=== PATIENT | female | born 1970 | race Caucasian/White ===

== ENCOUNTER → 2023-04-06 | Outpatient (CLI) | payer OTHER ==
--- NOTE | 2023-04-06 16:28 | XR ---
EXAMINATION TYPE: XR lumbosacral spine min 4V DATE OF EXAM: 04/06/2023 4:10 PM CLINICAL INDICATION:Female, 53 years old with history of [id number] SCIATICA LT SIDE; [facility] COMPARISON: None TECHNIQUE: XR lumbosacral spine min 4V - Frontal, lateral , bilateral oblique and coned in L5-S1 late ral views of the spine. FINDINGS: No evidence of any acute osseous pathology. No evidence of loss of vertebral body height i s seen. There is normal alignment of the lumbar vertebral bodies. Mild scattered disc space narrowing . Multilevel marginal osteophyte formation throughout the visualized spine. There is facet joint arth ropathy throughout the spine. Scattered at least mild neural foraminal stenosis. IMPRESSION: 1. No acute fracture. 2. Mild to moderate multilevel disc degeneration.
== END | disposition home or self-care (01) ==
LOC: RADXRYALE 15:50
PROVIDERS: ATTEND Internal Medicine
DX: M51.16 Intervertebral disc disorders with radiculopathy, lumbar region (principal)
CPT/HCPCS: 72110